=== PATIENT | male | born 1995 | race Hispanic/Latino ===

== ENCOUNTER 2022-12-21 07:21 | Emergency (ER) | payer SELFPAY ==
[~2022-12-21] VITALS: Ht 175.3 cm; Wt 89.4 kg
[2022-12-21] MEDS: SODIUM CHLORIDE 0.9% 1000ML 1,000 ML IV STA (07:50)
[2022-12-21] MEDS: DIPHENHYDRAMINE HCL INJ 50 MG/ML VIAL IV ONE (07:51)
[2022-12-21] MEDS: DEXAMETHASONE SOD PHOS 10 MG/1 ML VIAL IV ONE (07:54)
[2022-12-21] MEDS ORDERED: ESGIC 50-325-41 EACH PO (07:56)
[2022-12-21] MEDS ORDERED: OMEPRAZOLE40 MG PO (07:56)
[2022-12-21] MEDS ORDERED: ONDANSETRON ODT4 MG PO (07:56)
[2022-12-21] MEDS: KETOROLAC TROMETHAMINE 30 MG/ML VIAL IV ONE (07:59)
[2022-12-21] MEDS: FAMOTIDINE 20 MG/2 ML VIAL IV ONE (08:00)
[2022-12-21] MEDS ORDERED: PROMETHAZINE HCL (IM) 25 MG/ML VIAL IM ONE (08:02)
[2022-12-21] MEDS ORDERED: SODIUM CHLORIDE 0.9% 1000ML 1,000 ML ONE (08:02)
[2022-12-21] MEDS ORDERED: DEXAMETHASONE SOD PHOS INJ 4 MG/ML SDV ONE (08:02)
[2022-12-21] MEDS ORDERED: KETOROLAC TROMETHAMINE 30 MG/ML VIAL ONE (08:02)
[2022-12-21] MEDS ORDERED: FAMOTIDINE 20 MG/2 ML VIAL IV ONE (08:03)
[2022-12-21] MEDS ORDERED: DIPHENHYDRAMINE HCL INJ 50 MG/ML VIAL ONE (08:03)
[2022-12-21] MEDS: PROMETHAZINE 25MG/ NS 50ML (IV) IV ONE (08:04)
== END 2022-12-21 09:07 | disposition home or self-care (01) ==
LOC: FSED 07:49
DX: G43.919 Migraine, unspecified, intractable, without status migrainosus (principal); R11.2 Nausea with vomiting, unspecified; Z79.899 Other long term (current) drug therapy
CPT/HCPCS: 70450; 80053; 81003; 85025; 96374; 96375; 96376; 99283; J1100 ×2; J1200; J1885; J2550; J7030